=== PATIENT | male | born 1980 | race Hispanic/Latino ===

== ENCOUNTER → 2021-01-18 | Outpatient (CLI) | payer BC ==
[2021-01-17 09:32] LABS: HEMOGLOBIN 15.9 g/dL (14.0-18.0)
[2021-01-17 09:49] LABS: INR 0.82
[2021-01-17 09:50] LABS: PARTIAL THROMBOPLASTIN TIME 30.8 seconds (23.8-35.5)
[~2021-01-18] MED LIST: FENTANYL CITRATE/PF 100MCG/2 ML INJ ONE; MIDAZOLAM HCL 2 MG/2 ML VIAL ONE
== END ==
LOC: US 08:49
PROVIDERS: ATTEND Internal Medicine Gastroenterology
DX: R74.8 Abnormal levels of other serum enzymes (principal); Z20.822 Contact with and (suspected) exposure to COVID-19
CPT/HCPCS: 36415; 47000; 76942; 85014; 85049; 85610; 85730; 88307; 88313; J2250; J3010; U0002